=== PATIENT | male | born 1945 | race Caucasian/White ===

== ENCOUNTER 2017-01-20 23:48 | Emergency (ER) | payer MEDICARE ==
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
== END 2017-01-21 01:00 | disposition home or self-care (01) ==
LOC: ER 23:48
DX: M79.671 Pain in right foot (principal); I10 Essential (primary) hypertension; F17.210 Nicotine dependence, cigarettes, uncomplicated; Z79.4 Long term (current) use of insulin; Z79.899 Other long term (current) drug therapy